=== PATIENT | female | born 2000 | race American Indian/Alaskan Native ===

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

== ENCOUNTER 2022-02-08 10:50 | Emergency (ER) | payer SELFPAY ==
[2022-02-08 11:59] VITALS: BP 130/73
== END 2022-02-09 01:29 | disposition left against medical advice (07) ==
LOC: ED 10:50
DX: T78.40XA Allergy, unspecified, initial encounter (principal); Z53.21 Procedure and treatment not carried out due to patient leaving prior to being seen by health care provider; X58.XXXA Exposure to other specified factors, initial encounter

== ENCOUNTER 2022-02-09 10:42 | Emergency (ER) | payer SELFPAY ==
[2022-02-09 11:28] VITALS: BP 111/58
--- NOTE | 2022-02-09 11:43 | Emergency Department Report ---
HPI - General Chief Complaint: Allergic Reaction Time Seen by Provider: 02/09/22 11:32 - HPI HPI: 21 Y F reports eating seafood 2 days ago and reports having rash to bilateral arms with itching. No SOB , no airway concern. Patient reports trying over-the- counter Benadryl cream to help with itching with slight relief. Patient still reports having hives and intense itching at times. No other acute signs or symptoms reported ED Past Medical Hx - Past Medical History Previous Medical History?: No - Surgical History Past Surgical History?: No - Social History Smoking Status: Never Smoker Substance Use Type: None - Medications Home Medications: Home Medications Medication Instructions Recorded Confirmed Last Taken Type Cetirizine HCl [ZyrTEC] 10 mg PO DAILY #30 capsule 07/22/21 Unknown Rx Famotidine [Pepcid] 20 mg PO DAILY #30 tablet 07/22/21 Unknown Rx predniSONE [Deltasone] 20 mg PO DAILY #5 tablet 07/22/21 Unknown Rx predniSONE [Deltasone] 20 mg PO QDAY 5 Days #5 tab 02/09/22 Unknown Rx ED Review of Systems ROS: Stated complaint: ALLERGIC REACTION Other details as noted in HPI Comment: All other systems reviewed and negative Respiratory: denies: shortness of breath, wheezing Cardiovascular: denies: chest pain Skin: rash (Bilateral forearms hives present) Physical Exam - Physical Exam Vital Signs: Vital Signs 02/09/22 11:26 Temperature 98.9 F Pulse Rate 86 Respiratory 16 Rate Blood Pressure 111/58 [Right] O2 Sat by Pulse 100 Oximetry General: Patient is alert and oriented x3 Nonlabored breathing. No oral swelling noted. Hives noted to bilateral forearms No facial swelling noted. Lungs are clear to auscultation. ED Course Vital Signs 02/09/22 11:26 Temperature 98.9 F Pulse Rate 86 Respiratory 16 Rate Blood Pressure 111/58 [Right] O2 Sat by Pulse 100 Oximetry ED Medical Decision Making - Radiology Data 21 Y F reports eating seafood 2 days ago and reports having rash to bilateral arms with itching. No SOB , no airway concern. Patient reports trying [id number] Benadryl cream to help with itching with slight relief. Patient still reports having hives and intense itching at times. No other acute signs or symptoms reported On physical exam bilateral arms have hives noted. No oral facial swelling noted. No airway concerns. Patient informed to continue the Benadryl cream as well as to take oral Benadryl for itching as well as patient informed that should be started on a short course of steroids for 5 days. Patient agrees with plan of care verbalized understanding. Patient informed to refrain from eating seafood going forward. Patient informed if symptoms are to get worse to report back to the ER. Vital Signs 02/09/22 11:26 Temperature 98.9 F Pulse Rate 86 Respiratory 16 Rate Blood Pressure 111/58 [Right] O2 Sat by Pulse 100 Oximetry Critical care attestation.: If time is entered above; I have spent that time in minutes in the direct care of this critically ill patient, excluding procedure time. ED Disposition Clinical Impression: Seafood allergy Disposition: 01 HOME / SELF CARE / HOMELESS Is pt being admited?: No Condition: Stable Instructions: Seafood Allergy Prescriptions: predniSONE [Deltasone] 20 mg PO QDAY 5 Days #5 tab Referrals: MARGARITA LINDSEY MD [Primary Care Provider] - 3-5 Days Forms: Work/School Release Form(ED)
== END 2022-02-09 13:00 | disposition home or self-care (01) ==
LOC: ED 10:42
DX: R21 Rash and other nonspecific skin eruption (principal); Z91.013 Allergy to seafood; Z79.899 Other long term (current) drug therapy
CPT/HCPCS: 99281; 99282